=== PATIENT | female | born 1990 | race Caucasian/White ===

== ENCOUNTER 2020-09-13 00:39 | Emergency (ER) | payer MEDICAID ==
[~2020-09-13] VITALS: Ht 162.6 cm; Wt 54.5 kg
[~2020-09-13 00:39] MED LIST: CLIN-26 PO
[2020-09-13 00:50] VITALS: BP 143/89
--- NOTE | 2020-09-13 01:52 | NUR ---
Attempted to get in touch with mom, Cammie [phone]. Went to [facility], left message. Contacted other relatives to obtain this phone # and they stated patient is not welcome in their home at this time. Called [facility] [place] and patient can go there per [facility]. [facility] cab called to take patient to [place].
== END 2020-09-13 02:13 | disposition home or self-care (01) ==
LOC: ER 00:40
DX: T65.893A Toxic effect of other specified substances, assault, initial encounter (principal); F17.210 Nicotine dependence, cigarettes, uncomplicated; F12.90 Cannabis use, unspecified, uncomplicated; F15.90 Other stimulant use, unspecified, uncomplicated; Z72.89 Other problems related to lifestyle; Z59.0 Homelessness; Z79.899 Other long term (current) drug therapy; Y92.89 Other specified places as the place of occurrence of the external cause
CPT/HCPCS: 99283

== ENCOUNTER 2021-03-25 17:13 | Emergency (ER) | payer MEDICAID ==
[~2021-03-25] VITALS: Ht 162.6 cm; Wt 59.1 kg
[2021-03-25 18:16] VITALS: BP 135/99
== END 2021-03-25 18:20 ==
LOC: EEVIPCON 17:14 → ER 17:14
DX: Z00.8 Encounter for other general examination (principal); T18.2XXA Foreign body in stomach, initial encounter; F22 Delusional disorders; F12.90 Cannabis use, unspecified, uncomplicated; F15.90 Other stimulant use, unspecified, uncomplicated; Z98.890 Other specified postprocedural states; Z72.89 Other problems related to lifestyle; Z79.2 Long term (current) use of antibiotics; X58.XXXA Exposure to other specified factors, initial encounter; Y93.89 Activity, other specified; Y92.89 Other specified places as the place of occurrence of the external cause; Y99.8 Other external cause status
CPT/HCPCS: 74018; 99283

== ENCOUNTER 2021-05-05 03:32 | Emergency (ER) | payer MEDICAID ==
[~2021-05-05] VITALS: Ht 162.6 cm; Wt 50.1 kg
[2021-05-05 03:40] VITALS: BP 123/83
[2021-05-05] MEDS ORDERED: ketorolac trometh inj. 60 MG/2 ML VIAL IM ONE (06:00)
[2021-05-05] MEDS ORDERED: ketorolac trometh. 30mg/ml inj. IM ONE (06:10)
== END 2021-05-05 04:12 | disposition left against medical advice (07) ==
LOC: ER 03:33
DX: L02.411 Cutaneous abscess of right axilla (principal); Z53.21 Procedure and treatment not carried out due to patient leaving prior to being seen by health care provider

== ENCOUNTER 2021-05-10 21:50 | Emergency (ER) | payer MEDICAID ==
[~2021-05-10] VITALS: Ht 162.6 cm; Wt 59.1 kg
[2021-05-10 22:04] VITALS: BP 122/90
== END 2021-05-11 00:48 | disposition left against medical advice (07) ==
LOC: ER 21:50
DX: F15.90 Other stimulant use, unspecified, uncomplicated (principal); Z53.21 Procedure and treatment not carried out due to patient leaving prior to being seen by health care provider

== ENCOUNTER 2021-05-27 10:43 | Emergency (ER) | payer MEDICAID ==
[~2021-05-27] VITALS: Ht 162.6 cm; Wt 52.7 kg
[2021-05-27 11:14] LABS: EOSINOPHILS # (AUTO) 0.1 X10'3 (0-0.9); MEAN PLATELET VOLUME 8.3 FL (7.4-10.4); MONOCYTES # (AUTO) 0.3 X10'3 (0-0.9)
[2021-05-27 11:15] LABS: BASOPHILS % (AUTO) 0.5 % (0-1); EOSINOPHILS % (AUTO) 0.8 % (0-6); HEMATOCRIT 41.4 % (35.0-45.0); HEMOGLOBIN 13.9 g/dl (12.0-16.0); LYMPHOCYTES # (AUTO) 1.4 X10'3 (1.1-4.8); MEAN CORPUSCULAR HEMOGLOBIN 30.4 PG (27.0-31.0); MEAN CORPUSCULAR HGB CONC 33.7 g/dL (33.0-36.5); MEAN CORPUSCULAR VOLUME 90.3 FL (78-98); MONOCYTES % (AUTO) 4.5 % (2-12); NEUTROPHILS # (AUTO) 5.3 X10'3 (1.8-7.7); NEUTROPHILS % (AUTO) 74.2 % (42-75); PLATELET COUNT 247 X10'3 (140-440); RED BLOOD COUNT 4.59 X10'6 (4.20-5.60); RED CELL DISTRIBUTION WIDTH 13.9 % (11.5-14.5); WHITE BLOOD COUNT 7.1 X10'3 (4.5-11.0)
[2021-05-27 11:19] LABS: URINE HCG NEGATIVE (NEG)
[2021-05-27 11:27] LABS: ALANINE AMINOTRANSFERASE 37 U/L (12-78); ALBUMIN/GLOBULIN RATIO 1.2 (1.1-1.5); ALKALINE PHOSPHATASE 74 IU/L (46-116); ANION GAP 9 (8-16); ASPARTATE AMINO TRANSFERASE 35 U/L (10-37); BILIRUBIN,TOTAL 0.3 MG/DL (0.1-1.0); BLOOD UREA NITROGEN 16 MG/DL (7-18); BUN/CREATININE RATIO 17.4 (6.6-38.0); CALCIUM 8.7 MG/DL (8.5-10.1); CHLORIDE 105 MMOL/L (99-107); CREATININE 0.92 MG/DL (0.40-0.90); GLUCOSE 91 MG/DL (70-104); POTASSIUM 3.6 MMOL/L (3.5-5.1); SODIUM 143 MMOL/L (135-145); TOTAL CARBON DIOXIDE 29.5 MMOL/L (24-32); TOTAL PROTEIN 7.4 G/DL (6.4-8.2); eGFR 71 ML/MIN
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
[2021-05-27] MEDS ORDERED: haloperidol lactate 5mg/ml inj IM ONE ×2 (11:30→11:45)
[2021-05-27] MEDS ORDERED: LORazepam 2 mg/ml vial IM ONE (11:30)
[2021-05-27] MEDS ORDERED: diphenhydrAMINE 50 mg/ml inj IM ONE (11:30)
[2021-05-27 11:36] LABS: ETHANOL < 0.010 GM/DL (0.0-0.010)
[2021-05-27 11:37] LABS: URINE AMPHETAMINE SCREEN POSITIVE (Neg); URINE BARBITUATE SCREEN NEGATIVE (Neg); URINE BENZODIAZEPINES SCREEN NEGATIVE (Neg); URINE CANNABINOID SCREEN POSITIVE (Neg); URINE COCAINE SCREEN NEGATIVE (Neg); URINE METHADONE SCREEN NEGATIVE (Neg); URINE OPIATE SCREEN NEGATIVE (Neg); URINE PHENCYCLIDINE SCREEN NEGATIVE (Neg)
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
[2021-05-27 12:04] LABS: CLARITY,URINE SLIGHTLY CLOUDY (Clear); COLOR,URINE DARK YELLOW (Yellow); GLUCOSE, URINE NEGATIVE (Neg); KETONES,URINE NEGATIVE (Neg); LEUKOCYTE ESTERASE ,URINE NEGATIVE (Neg); NITRITES, URINE NEGATIVE (Neg); OCCULT BLOOD,URINE NEGATIVE (Neg); PH,URINE 7.5 (4.8-8.0); PROTEIN,URINE 30 mg/dl (Neg); UA COLLECTION TYPE CLN CATCH MIDSTREAM; UROBILINOGEN,URINE 0.2 E.U/dL (0.2-1.0)
[2021-05-27 12:10] LABS: BACTERIA,URINE NONE SEEN /HPF (Neg); MUCUS STRANDS MODERATE /LPF (Neg); RBC,URINE NONE SEEN /HPF (0-2); SQUAMOUS EPITHELIAL CELL,UR MODERATE /LPF (FEW)
[2021-05-27 12:11] LABS: COARSE GRANULAR CAST 0-3 /LPF (NEGATIVE)
[2021-05-27 12:13] LABS: AMORPHOUS PHOSPHATES 1+
--- NOTE | 2021-05-27 12:40 | NUR ---
Patient's lower restraints removed. Continue to monitor.
--- NOTE | 2021-05-27 13:44 | NUR ---
All restraints are off. Patient rolled to her right side. RN offered patient water but she didn't want any. Patient is calm. Continue to monitor.
--- NOTE | 2021-05-27 14:28 | NUR ---
Patient continues to sleep on her right side. No distress observed. Continue to monitor.
--- NOTE | 2021-05-27 16:23 | NUR ---
Patient sleeping on left side. No distress observed. Continue to monitor.
--- NOTE | 2021-05-27 16:24 | NUR ---
PACKET FAXED TO [facility]
--- NOTE | 2021-05-27 19:00 | NUR ---
The patient has been sleeping on her bed. She doesn't appear to be in any distress.
--- NOTE | 2021-05-27 21:44 | NUR ---
The patient appears to be sleeping
--- NOTE | 2021-05-27 23:05 | NUR ---
The patient appears to be sleeping
--- NOTE | 2021-05-28 01:23 | NUR ---
The patient appears to be sleeping
--- NOTE | 2021-05-28 03:48 | NUR ---
The patient appears to be sleeping
--- NOTE | 2021-05-28 05:15 | NUR ---
The patient appears to be sleeping
--- NOTE | 2021-05-28 07:00 | NUR ---
Received report and Pt in bed sleeping w/o distress.
--- NOTE | 2021-05-28 09:00 | NUR ---
Pt remains in bed sleeping. Pt told breakfast was here and she said thank you and went back to sleep.
--- NOTE | 2021-05-28 10:30 | NUR ---
Pt woke to use bathroom and ate breakfast before returning to sleep. Pt did not want to engage in conversation.
--- NOTE | 2021-05-28 13:00 | NUR ---
Pt remains tired and did not speak to registration. Pt wakes to eat and use bathroom and returns to bed to sleep.
--- NOTE | 2021-05-28 16:15 | NUR ---
Pt remains in bed sleeping with periods of waking to take a few bites of food. Pt's packet sent to [facility] for placement.
--- NOTE | 2021-05-28 17:45 | NUR ---
Pt accepted to [facility] per [facility] office.
[2021-05-28 18:29] VITALS: BP 114/82
== END 2021-05-28 18:33 ==
LOC: ER 10:44
DX: F31.64 Bipolar disorder, current episode mixed, severe, with psychotic features (principal); F10.10 Alcohol abuse, uncomplicated; R41.0 Disorientation, unspecified; R45.1 Restlessness and agitation; F24 Shared psychotic disorder; F12.90 Cannabis use, unspecified, uncomplicated; F15.90 Other stimulant use, unspecified, uncomplicated; Z98.890 Other specified postprocedural states; Z72.89 Other problems related to lifestyle; Z79.2 Long term (current) use of antibiotics; Y90.0 Blood alcohol level of less than 20 mg/100 ml
CPT/HCPCS: 36415; 80053; 80305; 80320; 81001; 81025; 84443; 85025; 96372; 99285; J1200; J1630; J2060

== ENCOUNTER 2021-06-17 09:15 | Emergency (ER) | payer MEDICAID ==
--- NOTE | 2021-06-17 09:19 | NUR ---
After exiting the ambulance, pt ambulated with steady gait across parking lot and away from dept. Stated to EMS that she no longer wished to be seen.
== END 2021-06-17 09:21 | disposition left against medical advice (07) ==
LOC: ER 09:16
DX: B89 Unspecified parasitic disease (principal); Z53.21 Procedure and treatment not carried out due to patient leaving prior to being seen by health care provider

== ENCOUNTER 2022-03-16 08:57 | Emergency (ER) | payer MEDICAID ==
[~2022-03-16] VITALS: Ht 162.6 cm; Wt 68.2 kg
[2022-03-16 09:20] VITALS: BP 131/73
[2022-03-16] MEDS ORDERED: CefTRIAXone 1000mg IM Kit (w/lidocaine diluent) IM STA (10:27)
[2022-03-16] MEDS ORDERED: METR-159 PO (10:30)
[2022-03-16] MEDS ORDERED: azithromycin 250mg tablet PO ONE (10:30)
== END 2022-03-16 10:53 | disposition home or self-care (01) ==
LOC: ER 08:57
DX: N89.8 Other specified noninflammatory disorders of vagina (principal); Z20.2 Contact with and (suspected) exposure to infections with a predominantly sexual mode of transmission
CPT/HCPCS: 36415; 87491; 87591; 96372; 99283; J0696